=== PATIENT | male | born 1960 | race Caucasian/White ===

== ENCOUNTER 2023-01-22 15:25 | Emergency (ER) | payer BC ==
[~2023-01-22] VITALS: Ht 172.7 cm; Wt 76.2 kg
[2023-01-22 17:51] LABS: BASOPHILS 0.4 % (0-2); EOSINOPHILS 1.9 % (0-6); HEMATOCRIT 42.4 % (35.0-50.0); HEMOGLOBIN 14.4 g/dL (12.0-18.0); MCH 29.8 (27-36); MCHC 33.9 g/dl (30-36); MCV 87.8 fl (81-99); MONOCYTES 6.9 % (0-12); NEUTROPHILS 74.8 % (39-80); PLATELET COUNT 299 K/uL (140-440); RBC 4.83 M/ul (4.3-5.7); RDW 13.9 (10.5-15.0)
[2023-01-22 18:11] LABS: ALBUMIN 4.1 g/dL (3.4-5.0); ALBUMIN/GLOBULIN RATIO 1.14 (1.1-2.4); ANION GAP 9.7 (7-21); BILIRUBIN, TOTAL 0.4 ng/dL (0.2-1.0); BUN/CREATININE RATIO 17.94 (6.0-28.6); CALCIUM 8.8 mg/dL (8.5-10.1); CREATININE, SERUM 0.78 mg/dL (0.70-1.30); POTASSIUM 3.7 mmol/L (3.5-5.1); PROTEIN, TOTAL 7.7 g/dL (6.4-8.2)
[2023-01-22] MEDS ORDERED: NORVASC5 MG PO (18:47)
[2023-01-22 19:17] VITALS: BP 175/99
--- NOTE | 2023-01-23 12:43 | EKG ---
[facility] [address] [place], [place] [address] Signed Normal sinus rhythm Normal ECG When compared with ECG of 07-JUN-2016 11:59, Nonspecific T wave abnormality has replaced inverted T waves in Inferior leads Confirmed by TESS SHELBY MD ([id number]) on 01/23/2023 12:43:34 PM Electronically Signed By: TESS SHELBY 01/23/23 1243 PATIENT NAME: OBIE SUTTON ATTILA Electrocardiogram DATE OF : 64 PHYSICIAN: TESS SHELBY REPORT #: [id number] REPORT IS CONFIDENTIAL AND NOT TO BE RELEASED WITHOUT AUTHORIZATION
== END 2023-01-22 19:00 | disposition home or self-care (01) ==
LOC: ED 15:25
PROVIDERS: Emergency Medicine
DX: I10 Essential (primary) hypertension (principal); F17.200 Nicotine dependence, unspecified, uncomplicated
CPT/HCPCS: 36415; 80053; 85025; 93005; 93010; 99283-25